=== PATIENT | female | born 1965 | race Caucasian/White ===

== ENCOUNTER → 2017-01-08 | Outpatient (CLI) | payer BC ==
[~2017-01-08] MED LIST: AMPH10TA2 PO; FLAX12003 PO; MULT-506 PO; OXYC-57 PO; PRED20TA2 PO; TRAZ50TA35 PO; ZOLP10TA PO; [UNRECOGNIZED DRUG - CODE] PO; vitamin B 12 PO
--- NOTE | 2017-01-08 15:40 | MAMMOGRAPHY REPORT ---
BILATERAL DIGITAL SCREENING MAMMOGRAM TOMOSYNTHESIS WITH CAD: 01/08/2017 CLINICAL HISTORY: Routine screening. Patient has no complaints. TECHNIQUE: Breast tomosynthesis in addition to standard 2D mammography was performed. Current study was also evaluated with a Computer Aided Detection (CAD) system. COMPARISON: Comparison is made to exams dated: 11/23/2015 mammogram, 11/20/2014 ultrasound biopsy, mammogram, 11/14/2014 ultrasound, 11/14/2014 mammogram - [facility], and . BREAST COMPOSITION: The tissue of both breasts is heterogeneously dense, which may obscure small ma sses. FINDINGS: No suspicious masses, calcifications, or areas of architectural distortion are noted in e ither breast. There has been no significant interval change compared to prior exams. Bilateral ghassan gn appearing calcifications are not significantly changed, including regional calcifications in the left upper outer quadrant which are stable dating back to at least the 2014 exam. A biopsy marker c lip is again noted in the left upper outer quadrant. IMPRESSION: ACR BI-RADS CATEGORY 2: BENIGN There is no mammographic evidence of malignancy. A 1 year screening mammogram is recommended. The p atient will receive written notification of the results. Approximately 10% of breast cancers are not detected with mammography. A negative mammographic repor t should not delay biopsy if a clinically suggestive mass is present. Kari Oropeza M.D. /:01/08/2017 08:49:33 Digester Capper: Nuvia SANDERSON)(August), [facility] letter sent: Normal 1/2 BI-RADS Code: ACR BI-RADS Category 2: Benign
== END | disposition home or self-care (01) ==
LOC: C.MAMM 07:45
PROVIDERS: ATTEND Family Medicine
DX: Z12.31 Encounter for screening mammogram for malignant neoplasm of breast (principal)

== ENCOUNTER 2017-06-04 12:48 | Emergency (ER) | payer BC, OTHER ==
[~2017-06-04] VITALS: Ht 160 cm; Wt 58.2 kg
[~2017-06-04 12:48] MED LIST changes: -OXYC-57 PO; -PRED20TA2 PO; -TRAZ50TA35 PO
[2017-06-04 12:58] VITALS: TEMP 37; Ht 160 cm; Wt 58.2 kg
[2017-06-04] MEDS ORDERED: TRAZ50TA35 PO (13:15)
[2017-06-04] MEDS ORDERED: ONDANSETRON INJ 2 MG/ML 2 ML VIAL IV STA (14:10)
[2017-06-04] MEDS ORDERED: MoRPHine SULFATE 4 MG/ML 1 ML CARP\\VIAL IV PRN (14:15)
[2017-06-04 14:40] LABS: BASO % 0.3 %; BASO ABS # 0.02 K/uL (0-0.2); COMPLETE YES; HEMATOCRIT 39.3 % (37-47); IG% 0.1 %; LYMPH % 29.6 %; LYMPH ABS # 1.99 K/uL (1.2-3.4); MEAN CELL VOLUME 95.2 fL (80-100); MEAN CORPUSCULAR HEMOGLOBIN 32.4 pg (25-34); MEAN CORPUSCULAR HGB CONC 34.1 g/dl (32-36); MEAN PLATELET VOLUME 8.9 fL (7.4-10.4); MONO % 10.4 %; NEUT % 56.6 %; PLATELET COUNT 272 K/uL (130-400); RED BLOOD COUNT 4.13 M/uL (4.2-5.4); WHITE BLOOD COUNT 6.73 K/uL (4.8-10.8)
[2017-06-04 14:55] LABS: URINE APPEARANCE CLEAR (CLEAR); URINE BILIRUBIN NEG (NEG); URINE COLOR DK YELLOW; URINE NITRITE NEG (NEG); URINE PH 5.5 (4.5-7.5); URINE SPECIFIC GRAVITY 1.042 (1.000-1.030); UROBILINOGEN NEG (NEG)
[2017-06-04 15:09] LABS: MANUAL MICROSCOPIC REQUIRED? NO; REVIEW REQ? NO
[2017-06-04 15:10] LABS: ALKALINE PHOSPHATASE 74 U/L (45-117); ALT/SGPT 80 U/L (12-78); BLOOD UREA NITROGEN 19 mg/dl (7-18); BUN/CREATININE RATIO 16.9 (10-20); CALCIUM 9.7 mg/dl (8.5-10.1); CARBON DIOXIDE 25 mmol/L (21-32); CHLORIDE 104 mmol/L (98-107); GLUCOSE 102 mg/dl (70-99); SODIUM 138 mmol/L (136-145)
[2017-06-04] MEDS ORDERED: OXYCODONE/ACETAMINOPHEN 5-325 TAB PO STA (15:27)
--- NOTE | 2017-06-04 15:42 | DIAGNOSTIC IMAGING REPORT ---
LUMBAR SPINE W/O CONTRAST CLINICAL HISTORY: 51 years-old Female with Back pain. Acute severe low back pain with radiation into the right lower extremity COMPARISON: CT abdomen and pelvis 12/31/2010 TECHNIQUE: Multiplanar, multi sequence MRI of the lumbar spine was performed without intravenous contrast. FINDINGS: 1.8 cm T2 hyperintense lesion is seen within the inferior pole right kidney, nonspecific however suggesting a cyst and appears unchanged in size from 12/31/2010. No acute intra-abdominal, intrapelvic or paraspinal abnormality identified on these images. Several of the images are motion degraded, notably the axial T1 and T2 images. T2 hyperintense structure, 7.4 mm is noted involving the right S2 neural foramen as seen on image 6 of series 4 suggesting perineural root sleeve cyst with similar structure seen on the left at T12-L1. Conus medullaris terminates at T12-L1. Signal within the cord is within normal limits. Modic type I endplate degenerative changes are present at the inferior endplate L5. T12-L1: No central canal or neural foraminal stenosis. L1-L2: No central canal or neural foraminal stenosis. L2-L3: No central canal or neural foraminal stenosis. Mild disc desiccation without significant intervertebral disc space narrowing. Mild facet arthropathy. L3-L4: Mild intervertebral disc space narrowing and disc desiccation with small circumferential annular disc bulge. Mild facet arthrosis and ligamentum flavum thickening. No central canal narrowing. There is mild inferior foraminal stenosis bilaterally. L4-L5: Mild intervertebral disc space narrowing and disc desiccation with moderate left and mild right facet arthropathy. Ligamentum flavum thickening with small right effusion. Central canal is patent. Mild inferior bilateral foraminal stenosis. L5-S1: Mild intervertebral disc space narrowing with circumferential annular disc bulge. Superimposed left paracentral broad-based disc protrusion with annular fissure abuts the ventral thecal sac and causes mild left lateral recess narrowing abutting the left S1 nerve root seen on image 27 series 6. Moderate facet arthrosis and ligamentum flavum redundancy also present with resultant moderate bilateral foraminal narrowing. IMPRESSION: 1. At L5-S1 there is mild intervertebral disc space narrowing with circumferential annular disc bulge and superimposed left paracentral disc protrusion with annular fissure causing mild left lateral recess narrowing abutting the adjacent left S1 nerve root. Moderate facet arthrosis and ligamentum flavum redundancy is also present at this level with resultant moderate bilateral foraminal narrowing. 2. Mild discogenic degenerative changes are also seen at L3-L4 and L4-L5 as above without high-grade stenosis. 3. Modic type I endplate degenerative changes involve the inferior endplate L5. 4. No focal bone marrow edema or fracture. The above report was generated using voice recognition software. It may contain grammatical, syntax or spelling errors. Electronically signed by: Juan Francisco Bowie M.D. 06/04/2017 3:41 PM Dictated Date/Time: 06/04/2017 3:31 PM
[2017-06-04] MEDS ORDERED: OXYC-57 PO (16:10)
[2017-06-04] MEDS ORDERED: PRED20TA2 PO (16:10)
[2017-06-04 16:24] VITALS: BP 100/52; PULSE 53; O2SAT 98
--- NOTE | 2017-06-05 06:53 | EMERGENCY ROOM VISIT NOTE ---
ED Visit Note First contact with patient: 13:28 Chief Complaint: I hurt my lower back. History of Present Illness: Ms. Kim is a 51-year-old white female who ambulates into the ED accompanied by her complaining of lumbar back pain. Historically patient reports that she has had chronic back pain for many years. Over the last 3 months it has become more severe. She was seen by Dr. Campos , orthopedic back specialist, and currently she is currently in physical therapy and has been seeing a chiropractor for her back. is a physical therapist and he reports that initially these therapy seemed to be working but her chronic pain has been exacerbated more frequently than beast for starting these therapies. Patient reports she had oral surgery and was given a dental plate. Approximately 5-6 hours ago she felt like she needed to sneeze but was afraid to sneeze because she thought her plate would fall out of her mouth. She did hold sneeze in and jerked her body. Since that time she has had exacerbation of her lumbar back pain. Currently she is complaining of a sharp lumbar back pain in the L3 through S1 area. She rates her discomfort 10/10. The pain is radiating into both buttocks and down the posterior aspect of both legs with slight prominence on the left than the right. Her pain worsens with palpation of the lumbar spine, all movements of the lumbar spine. She has not identified any alleviating factors related to the pain. She has taken ibuprofen without relief of her discomfort. Associated with her pain she reports she feels like she is having weakness of her legs which is left-sided prominent. She denies any associated fevers, chills, sweats, skin eruptions, skin color changes, abdominal pain, nausea, vomiting, diarrhea, constipation, rectal bleeding, black/tarry stools, urinary symptoms, hematuria, vaginal bleeding, vaginal discharge, genital paresthesias, bowel and bladder dysfunction, lower extremity numbness/tingling. Review of Systems: As noted above in history of present illness. All body systems were reviewed and found to be negative as noted above. Past Medical History: As previously noted and asthma, bronchitis, gastric ulcers , status post hysterectomy and unspecified dental surgery. Current Medications: Trazodone. Allergies to Medications: Hormonal replacements. Social History: Patient is currently employed; she feels safe in her home environment; she denies tobacco use and admits to social alcohol use. Physical Examination: Vital Signs: Date Time Temp Pulse Resp B/P (MAP) Pulse Ox O2 Delivery O2 Flow Rate FiO2 06/04/17 16:24 53 18 100/52 98 Room Air 06/04/17 14:34 79 06/04/17 14:25 62 16 116/64 100 Room Air 06/04/17 12:58 37.0 80 18 124/82 97 Room Air GENERAL: 51-year-old female in moderate distress due to pain, nontoxic-appearing , afebrile and hemodynamically stable. NEUROLOGICAL: Awake, alert and oriented to person, place and time. Answering questions appropriately and following commands. Normal gait. SKIN: Warm, dry and pink. No soft tissue eruptions or trauma noted. HEENT: Atraumatic and normocephalic. BACK: No tenderness over the bony cervical and thoracic spine. No CVA tenderness. Moderate tenderness throughout the L3-S1 the bony spine. I do not appreciate any bony deformity, bony crepitus, swelling, ecchymosis or step- offs. There is also moderate tenderness throughout the left side of the lumbar paramusculature with out muscle spasm. Decreased range of motion in all movements at the waist due to pain. Left-sided straight leg raise test was positive at 20. Right sided testing was negative. THORAX: Lungs sounds are clear to auscultation and equal bilaterally with symmetrical chest wall. No wheezing, rales or rhonchi. HEART: Regular rate and rhythm. No gallops, rubs or murmurs are appreciated. ABDOMEN: Flat and soft with mild tenderness in the right upper quadrant. Positive bowel sounds in all quadrants. No guarding, rigidity or organomegaly. EXTREMITIES: Moves all extremities well on command and with purpose. All distal neurovascular statuses are intact and equal bilaterally. No calf tenderness or cords. Left Lower Extremities: No gross bony deformity. No shortening or malrotation's. No tenderness in the hip, thigh, knee, lower leg, ankle or foot. 2+ patellar and Achilles tendon reflexes intact and equal bilaterally. 5/5 muscle strength in flexion, extension, abduction and abduction of the hips, flexion and extension of the knees, plantar flexion and dorsiflexion of the ankles and plantar flexion and dorsiflexion of the great toes. She was able to distinguish light sensations through all dermatomes of the lower legs. ED Course: Patient is assessed as noted above. Patient's medication list was reviewed. Laboratory Testing: Test 06/04/17 14:25 06/04/17 14:27 Range/Units Urine Color DK YELLOW Urine Appearance CLEAR CLEAR Urine pH 5.5 4.5-7.5 Urine Specific [place] 1.042 1.000-1.030 Urine Protein NEG NEG Urine Glucose (UA) NEG NEG Urine Ketones TRACE NEG Urine Occult Blood NEG NEG Urine Nitrite NEG NEG Urine Bilirubin NEG NEG Urine Urobilinogen NEG NEG Urine Leukocyte Esterase NEG NEG White Blood Count 6.73 4.8-10.8 K/uL Red Blood Count 4.13 4.2-5.4 M/uL Hemoglobin 13.4 12.0-16.0 g/dL Hematocrit 39.3 37-47 % Mean Corpuscular Volume 95.2 80-100 fL Mean Corpuscular Hemoglobin 32.4 25-34 pg Mean Corpuscular Hemoglobin Concent 34.1 32-36 g/dl Platelet Count 272 130-400 K/uL Mean Platelet Volume 8.9 7.4-10.4 fL Neutrophils (%) (Auto) 56.6 % Lymphocytes (%) (Auto) 29.6 % Monocytes (%) (Auto) 10.4 % Eosinophils (%) (Auto) 3.0 % Basophils (%) (Auto) 0.3 % Neutrophils # (Auto) 3.81 1.4-6.5 K/uL Lymphocytes # (Auto) 1.99 1.2-3.4 K/uL Monocytes # (Auto) 0.70 0.11-0.59 K/uL Eosinophils # (Auto) 0.20 0-0.5 K/uL Basophils # (Auto) 0.02 0-0.2 K/uL RDW Standard Deviation 43.7 36.4-46.3 fL RDW Coefficient of Variation 12.6 11.5-14.5 % Immature Granulocyte % (Auto) 0.1 % Immature Granulocyte # (Auto) 0.01 0.00-0.02 K/uL Sodium Level 138 136-145 mmol/L Potassium Level 3.5-5.1 mmol/L Chloride Level 104 98-107 mmol/L Carbon Dioxide Level 25 21-32 mmol/L Anion Gap 9.0 3-11 mmol/L Blood Urea Nitrogen 19 7-18 mg/dl Creatinine 1.10 0.60-1.20 mg/dl Est Creatinine Clear Calc Drug Dose 48.9 ml/min Estimated GFR () 66.4 Estimated GFR (Non- 57.3 BUN/Creatinine Ratio 16.9 10-20 Random Glucose 102 70-99 mg/dl Calcium Level 9.7 8.5-10.1 mg/dl Total Bilirubin 0.3 0.2-1 mg/dl Direct Bilirubin 0-0.2 mg/dl Aspartate Amino Transf (AST/SGOT) 15-37 U/L Alanine Aminotransferase (ALT/SGPT) 80 12-78 U/L Alkaline Phosphatase 74 45-117 U/L Total Protein 8.6 6.4-8.2 gm/dl Albumin 4.2 3.4-5.0 gm/dl Lipase 198 73-393 U/L Lumbar Spine MRI: Was reviewed by myself and read by the radiologist and shows L5-S1 mild intravertebral disc space narrowing with circumferential annular disc bulging and left paracentral disc protrusion with annular fissure causing mild left lateral recess narrowing abutting the Rnoen left L1 nerve root with moderate facet arthrosis and ligamentum flavum redundancy with result moderate bilateral foraminal narrowing. Moderate discogenic degenerative changes also seen at L3-L4 and L4-L5 without high-grade stenosis, Modic type I and platelet degenerative changes involving the inferior endplate of L5 and no focal bony edema or fracture. An IV lock was initiated and patient initially received 4 mg of morphine IV and 4 mg of Zofran IV. On return from her MRI she reports she has had no relief of the pain with the morphine and she was given 2 Percocet 5/325 mg tablets by mouth for pain and 60 mg of prednisone by mouth for inflammation. Patient was reassessed multiple times during her stay in the emergency department. Patient's case was initially reviewed with Dr. Wesley who agreed with her laboratory testing and MRI. Patient's case that was finally reviewed with Dr. Cantrell to discuss the results of her testing and MRI. We agreed on diagnostic approach, treatment, disposition and plan. Patient and were educated about today's findings and instructed on her treatment plan; they verbalized understanding and agreement with this plan. Clinical Impression: Acute lumbar back pain. Decision-Making: Initially my differential diagnosis I considered herniated disc , vertebral fracture, abscess, tumor, pancreatitis, kidney stone, degenerative disc disease and other causes. Disposition: Patient discharged home in stable condition accompanied by her ; prior to departure she was reassessed and subjectively reported she was feeling better and rated her discomfort 5/10. Plan: Comfort measures including rest, ice, proper lifting and moving techniques as well as a sliding pain scale of ibuprofen, acetaminophen and Percocet were discussed with the patient; patient was given appropriate narcotic precautions and her name was checked in the state database and no red flags were noted. Patient was encouraged to follow-up with Dr. Campos for continued care and treatment. Patient was encouraged return ED for worsening/uncontrolled pain, fevers, worsening perceptions of lower extremity weakness, any numbness or tingling of the legs, any difficulty controlling bowel and bladder functions or any new/ concerning symptoms.
== END 2017-06-04 16:47 | disposition home or self-care (01) ==
LOC: C.EDB 12:49 → C.EDD 16:47
DX: M54.5 Low back pain (principal); J45.909 Unspecified asthma, uncomplicated

== ENCOUNTER → 2018-01-11 | Outpatient (CLI) | payer OTHER ==
[~2018-01-11] MED LIST changes: -AMPH10TA2 PO; -FLAX12003 PO; -MULT-506 PO; +TRAZ50TA35 PO; -ZOLP10TA PO; -[UNRECOGNIZED DRUG - CODE] PO; -vitamin B 12 PO
--- NOTE | 2018-01-11 15:25 | MAMMOGRAPHY REPORT ---
BILATERAL DIGITAL SCREENING MAMMOGRAM TOMOSYNTHESIS WITH CAD: 01/11/2018 CLINICAL HISTORY: Routine screening. Patient has no complaints. TECHNIQUE: Breast tomosynthesis in addition to standard 2D mammography was performed. Current study was also evaluated with a Computer Aided Detection (CAD) system. COMPARISON: Comparison is made to exams dated: 11/23/2015 mammogram, 01/08/2017 mammogram, 11/20/2014 u ltrasound biopsy, 11/20/2014 mammogram, 11/14/2014 ultrasound, and 11/14/2014 mammogram - [facility]. BREAST COMPOSITION: The tissue of both breasts is heterogeneously dense, which may obscure small mas ses. FINDINGS: The parenchymal pattern is similar to prior mammograms. There are diffuse bilateral punct ate microcalcifications, and a stable ribbon-shaped biopsy marker clip in the 12:00 to 1:[address] No developing mass, architectural distortion or cluster of suspicious microcalcifications is see n. IMPRESSION: ACR BI-RADS CATEGORY 2: BENIGN There is no mammographic evidence of malignancy. A 1 year screening mammogram is recommended. The pa tient will receive written notification of the results. Approximately 10% of breast cancers are not detected with mammography. A negative mammographic report should not delay biopsy if a clinically suggestive mass is present. Kenia Nicholson M.D. ay/:01/11/2018 12:28:32 [employer]ic [employer] Welder: Bren SANDERSON)(August), [facility] letter sent: Normal 1/2 BI-RADS Code: ACR BI-RADS Category 2: Benign
== END | disposition home or self-care (01) ==
LOC: C.MAMM 07:50
PROVIDERS: ATTEND Family Medicine
DX: Z12.31 Encounter for screening mammogram for malignant neoplasm of breast (principal)